=== PATIENT | male | born 2000 | race Native Hawaiian/Other Pacific Islander ===

== ENCOUNTER 2021-06-19 13:00 | Emergency (ER) | payer OTHER ==
[~2021-06-19] VITALS: Ht 170.2 cm; Wt 68.2 kg
[2021-06-19 13:01] VITALS: BP 136/76
[2021-06-19] MEDS ORDERED: [UNRECOGNIZED DRUG - OTHER] (13:27)
[2021-06-19] MEDS ORDERED: TRENTINOIN TOP (13:27)
[2021-06-19] MEDS ORDERED: TERB250T91 PO (13:27)
[2021-06-19] MEDS ORDERED: PRED10PA2 PO (13:27)
[2021-06-19 16:19] LABS: BASO % 0.3 % (0.0-1.0); EOS % 0.1 % (0.0-3.0); HEMATOCRIT 49.8 % (42.0-52.0); HEMOGLOBIN 15.6 g/dl (13.5-17.5); LYMPH # 1.1 10^3/uL (1.5-5.0); LYMPH % 10.9 % (24.0-44.0); MEAN CORPUSCULAR HEMOGLOBIN 26.6 pg (27.0-33.0); MEAN CORPUSCULAR HGB CONC 31.3 g/dl (32.0-36.5); MONO # 0.2 10^3/uL (0.0-0.8); MONO % 1.6 % (2.0-8.0); NEUTROPHILS % 86.7 % (36.0-66.0); PLATELET COUNT, AUTOMATED 383 10^3/uL (150-450); RED BLOOD COUNT 5.86 10^6/uL (4.30-6.10); WHITE BLOOD COUNT 10.3 10^3/uL (4.0-10.0)
[2021-06-19 16:50] LABS: ALBUMIN 4.4 GM/DL (3.2-5.2); BILIRUBIN,DIRECT 0.1 MG/DL (0.0-0.2); BILIRUBIN,TOTAL 0.2 MG/DL (0.2-1.0)
[2021-06-19] MEDS ORDERED: GRIS1TAB PO (17:10)
[2021-06-19] MEDS ORDERED: KETO2SHA8 TOP (17:10)
== END 2021-06-19 17:46 | disposition home or self-care (01) ==
LOC: M ED 13:00
DX: B35.0 Tinea barbae and tinea capitis (principal); B35.4 Tinea corporis